=== PATIENT | female | born 1990 | race African-American/Black ===

== ENCOUNTER 2017-08-06 07:18 | Emergency (ER) | payer BC, OTHER ==
[~2017-08-06] VITALS: Ht 165.1 cm; Wt 114.3 kg
[~2017-08-06 07:18] MED LIST: BUSP5TAB PO; CEPH-264 PO; DIPH25CA58 PO; DOXY50TA8 PO; METR500T PO; ONDA4TAB10 SL; TRIA15OI9 TP
[2017-08-06 07:36] VITALS: BP 152/101
[2017-08-06] MEDS ORDERED: metroNIDAZOLE 500 MG TABLET PO ONE (08:00)
[2017-08-06] MEDS ORDERED: cefTRIAXone IM 250 MG VIAL IM ONE (08:00)
[2017-08-06] MEDS ORDERED: AZITHROMYCIN 250 MG TABLET. PO ONE (08:00)
--- NOTE | 2017-08-06 08:24 | PHYS DOC ---
Past Medical History Past Medical History: No Pertinent History Additional Past Medical Histor: morbidly obese Past Surgical History: No Surgical History Additional Past Surgical Histo: wisdom teeth Alcohol Use: Occasionally Drug Use: None Adult General Chief Complaint Chief Complaint: GENERALIZED BODY ACHES HPI HPI Patient is a 26 year old female with no significant medical history who presents today with with body aches that began after having sex with a new partner . Patient states she is concerned she could have an STD and would like to be tested and treated. Review of Systems Review of Systems Constitutional: Reports body aches. Denies fever or chills [] Eyes: Denies change in visual acuity, redness, or eye pain [] HENT: Denies nasal congestion or sore throat [] Respiratory: Denies cough or shortness of breath [] Cardiovascular: No additional information not addressed in HPI [] GI: Denies abdominal pain, nausea, vomiting, bloody stools or diarrhea [] : Reports concern for STDs. Denies dysuria or hematuria [] Musculoskeletal: Denies back pain or joint pain [] Integument: Denies rash or skin lesions [] Neurologic: Denies headache, focal weakness or sensory changes [] Endocrine: Denies polyuria or polydipsia [] Current Medications Current Medications Current Medications Medications (Trade) Dose Ordered Sig/[facility] Start Time Stop Time Status Last Admin Dose Admin Azithromycin (Zithromax) 1,000 mg 1X ONCE 08/06/17 08:00 08/06/17 08:01 DC 08/06/17 08:03 1,000 MG Ceftriaxone Sodium (Rocephin Im) 250 mg 1X ONCE 08/06/17 08:00 08/06/17 08:01 DC 08/06/17 08:03 250 MG Metronidazole (Flagyl) 2,000 mg 1X ONCE 08/06/17 08:00 08/06/17 08:01 DC 08/06/17 08:03 2,000 MG Allergies Allergies Allergies Coded Allergies Type Severity Reaction Last Updated Verified No Known Drug Allergies 07/13/14 No Physical Exam Physical Exam Constitutional: Well developed, well nourished, no acute distress, non-toxic appearance. [] HENT: Normocephalic, atraumatic, bilateral external ears normal, oropharynx moist, no oral exudates, nose normal. [] Eyes: PERRLA, EOMI, conjunctiva normal, no discharge. [] Neck: Normal range of motion, no tenderness, supple, no stridor. [] Cardiovascular:Heart rate regular rhythm, no murmur [] Lungs & Thorax: Bilateral breath sounds clear to auscultation [] Abdomen: Bowel sounds normal, soft, no tenderness, no masses, no pulsatile masses. [] Pelvic exam External pelvic appears normal, cervix not well visualized due to body habitus, no CMT, no adnexal tenderness, small amount of white discharge in the vaginal vault. Skin: Warm, dry, no erythema, no rash. [] Back: No tenderness, no CVA tenderness. [] Extremities: No tenderness, no cyanosis, no clubbing, ROM intact, no edema. [] Neurologic: Alert and oriented X 3, normal motor function, normal sensory function, no focal deficits noted. [] Psychologic: Affect normal, judgement normal, mood normal. [] Current Patient Data Vital Signs Vital Signs Date Time Temp Pulse Resp B/P (MAP) Pulse Ox O2 Delivery O2 Flow Rate FiO2 08/06/17 07:36 98.1 79 18 152/101 (118) 98 98.1 Lab Values Laboratory Tests Test 08/06/17 07:35 08/06/17 07:41 Urine Collection Type Unknown Urine Color Yellow Urine Clarity Clear Urine pH 7.5 Urine Specific [place] 1.025 Urine Protein Negative mg/dL (NEG-TRACE) Urine Glucose (UA) Negative mg/dL (NEG) Urine Ketones (Stick) Negative mg/dL (NEG) Urine Blood Negative (NEG) Urine Nitrite Negative (NEG) Urine Bilirubin Negative (NEG) Urine Urobilinogen Dipstick 2.0 mg/dL (0.2 mg/dL) Urine Leukocyte Esterase Negative (NEG) Urine RBC 0 /HPF (0-2) Urine WBC 1-4 /HPF (0-4) Urine Squamous Epithelial Cells Few /LPF Urine Bacteria Few /HPF (0-FEW) Urine Hyaline Casts Few /HPF Urine Mucus Slight /LPF POC Urine HCG, Qualitative Hcg negative (Negative) Microbiology 08/06/17 Wet Prep - Final, Complete EKG EKG [] Radiology/Procedures Radiology/Procedures [] Course & Med Decision Making Course & Med Decision Making Pertinent Labs and Imaging studies reviewed. (See chart for details) This is a 26-year-old female patient presenting today with body aches and concern for STDs that began yesterday after having sex with a new partner. Negative urine hCG, urine analysis is negative for infection. Wet prep positive for BV. Patient was treated prophylaxis for STDs in the ED. Discharged with Flagyl to complete BV treatment. Educated on safe sex practices especially the need to use protection and contact all the partners and let them know she was treated for STDs. Follow-up with his own PCP in 1-2 weeks as needed. Dragon Disclaimer Dragon Disclaimer This electronic medical record was generated, in whole or in part, using a voice recognition dictation system. Departure Departure Impression: Primary Impression: Concern about STD in female without diagnosis Additional Impression: Bacterial vaginosis Disposition: HOME, SELF-CARE Condition: STABLE Referrals: NO PCP (PCP) follow up with your doctor in one week Patient Instructions: Bacterial Vaginosis, [id number] Additional Instructions: You were treated in the emergency room for STDs. You must contact your partners. Let them know you were treated and ask them to seek treatment too. Use protection at all times. Take ibuprofen as needed for pain including body aches. You have bacterial vaginosis. Ensure you complete your antibiotics. DO NOT DRINK WHILE ON FLAGYL Scripts Ibuprofen (Ibuprofen) 800 Mg Tablet 800 MG PO Q8HRS, #14 TAB Prov: DALIA MACIAS APRN 08/06/17 Promethazine Hcl (PROMETHAZINE HCL) 25 Mg Tablet 1 TAB PO PRN Q6HRS, #20 TAB Prov: DALIA MACIAS APRN 08/06/17 Metronidazole (FLAGYL) 500 Mg Tablet 1 TAB PO BID, #10 TAB Prov: DALIA MACIAS APRN 08/06/17 Problem Qualifiers DALIA MACIAS APRN Aug 06, 2017 08:24
[2017-08-06 08:28] LABS: BILIRUBIN,URINE NEGATIVE (NEG); GLUCOSE,URINE NEGATIVE (NEG); NITRITE,URINE NEGATIVE (NEG); PH,URINE 7.5; PROTEIN,URINE NEGATIVE (NEG-TRACE)
[2017-08-06 08:36] LABS: BACTERIA,URINE FEW /HPF (0-FEW); RBC,URINE 0 /HPF (0-2); SQUAMOUS EPITHELIAL CELL,UR FEW /LPF
[2017-08-06] MEDS ORDERED: ONDANSETRON ODT 4 MG TAB.RAPDIS. PO ONE (09:00)
[2017-08-06] MEDS ORDERED: METR500T PO (09:03)
[2017-08-06] MEDS ORDERED: IBUP800T19 PO (09:03)
[2017-08-06] MEDS ORDERED: PROM25TA10 PO (09:03)
== END 2017-08-06 09:06 | disposition home or self-care (01) ==
LOC: ER 07:18
DX: Z11.3 Encounter for screening for infections with a predominantly sexual mode of transmission (principal); N76.0 Acute vaginitis; E66.01 Morbid (severe) obesity due to excess calories; Z68.41 Body mass index [BMI] 40.0-44.9, adult
CPT/HCPCS: 81001; 81025; 87491; 87591; 96372; 99284; J0696; Q0111; Q0144; Q0162